=== PATIENT | female | born 1965 | race Asian ===

== ENCOUNTER 2017-01-08 18:16 | Emergency (ER) | payer MEDICARE ==
[~2017-01-08] VITALS: Ht 157.5 cm; Wt 64.0 kg
[2017-01-08] MEDS ORDERED: LABETALOL HCL 20MG/4ML CARPUJECT IV ONE (18:45)
[2017-01-08 19:13] LABS: BASOPHILS % 0.8 % (0.0-2.0); EOSINOPHILS % 3.6 % (0.0-5.0); HEMATOCRIT. 44.7 % (36.0-48.0); HEMOGLOBIN. 14.3 g/dL (12.0-16.0); LYMPHOCYTES % 21.9 % (20.0-50.0); MEAN CORPUSCULAR HEMOGLOBIN 21.8 pg (28.0-32.0); MEAN CORPUSCULAR VOLUME 68.1 fL (81.0-99.0); MEAN PLATELET VOLUME 9.5 fl (7.4-10.4); MONOCYTES % 7.6 % (2.0-8.0); NEUTROPHILS % 66.1 % (40.0-76.0); PLATELET 196 x1000/uL (130-400); RED BLOOD CELL COUNT 6.56 mill/uL (4.2-5.4)
[2017-01-08 19:16] LABS: PARTIAL THROMBOPLASTIN TIME 26.7 sec (24.0-34.0)
[2017-01-08 19:24] LABS: CARBON DIOXIDE 26 mEq/L (21-32); CHLORIDE 101 mEq/L (98-107); TROPONIN I < 0.02 ng/mL (0.00-0.04)
[2017-01-08 19:36] LABS: PLATELET ESTIMATE NORMAL
[2017-01-08] MEDS ORDERED: LABETALOL 5MG/ML SYR 20 MG/4 ML SYRINGE IV SCH (21:00)
[2017-01-08] MEDS ORDERED: LABETALOL 5MG/ML SYR 20 MG/4 ML SYRINGE IV ONE (21:00)
[2017-01-08 21:49] LABS: CLARITY URINE CLEAR (CLEAR); COLOR URINE YELLOW (YELLOW); GLUCOSE URINE 3+ (NEGATIVE); KETONES URINE NEGATIVE (NEGATIVE); LEUKOCYTE ESTERASE URINE TRACE (NEGATIVE); NITRITE URINE NEGATIVE (NEGATIVE); OCCULT BLOOD URINE NEGATIVE (NEGATIVE); PROTEIN URINE 2+ (NEGATIVE); SPECIFIC GRAVITY URINE 1.017 (1.005-1.030); UROBILINOGEN URINE 0.2 E.U./dL (0.2-1.0)
[2017-01-08] MEDS ORDERED: CEFTRIAXONE 1 G PREMIX 50 ML IV ONE (22:15)
[2017-01-08] MEDS: POTASSIUM BICARB/CIT ACID 25 MEQ TABLET.EFF PO NR ×2 (22:46→22:53)
[2017-01-08 23:25] VITALS: BP 168/78
== END 2017-01-08 23:25 | disposition home or self-care (01) ==
LOC: ER 18:51
DX: I16.0 Hypertensive urgency (principal); I10 Essential (primary) hypertension; M54.12 Radiculopathy, cervical region; E87.5 Hyperkalemia; N39.0 Urinary tract infection, site not specified; I69.354 Hemiplegia and hemiparesis following cerebral infarction affecting left non-dominant side; E78.00 Pure hypercholesterolemia, unspecified; E11.9 Type 2 diabetes mellitus without complications; R20.0 Anesthesia of skin
CPT/HCPCS: 36415; 71010; 72141; 80053; 81001; 84484; 85025; 85610; 85730; 87086; 93005; 96365; 96375; 99285; J0696; J3490